=== PATIENT | male | born 1955 | race Caucasian/White ===

== ENCOUNTER → 2022-12-10 | Outpatient (CLI) | payer MEDICARE ==
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
== END ==
LOC: RAD 13:23
PROVIDERS: ATTEND Family Medicine
DX: M50.30 Other cervical disc degeneration, unspecified cervical region (principal); M48.02 Spinal stenosis, cervical region; M47.812 Spondylosis without myelopathy or radiculopathy, cervical region; M50.23 Other cervical disc displacement, cervicothoracic region; M48.03 Spinal stenosis, cervicothoracic region
CPT/HCPCS: 72141